=== PATIENT | male | born 1980 | race Caucasian/White ===

== ENCOUNTER 2016-11-27 02:38 | Emergency (ER) | payer MEDICAID ==
[~2016-11-27] VITALS: Ht 172.7 cm; Wt 65.9 kg
[2016-11-27 02:40] VITALS: BP 146/86
== END 2016-11-27 04:23 | disposition home or self-care (01) ==
LOC: ED 04:03
DX: K08.89 Other specified disorders of teeth and supporting structures (principal)
CPT/HCPCS: 99283

== ENCOUNTER 2018-03-19 23:21 | Emergency (ER) | payer MEDICAID ==
[~2018-03-19] VITALS: Ht 172.7 cm; Wt 72.0 kg
--- NOTE | 2018-03-19 23:52 | NUR ---
Dwight ko in ED - 03/19/18 at 2353 by ROBE EKG BEING DONE. PT IN [place], AWAITING ERP EVAL
--- NOTE | 2018-03-19 23:53 | NUR ---
EKG BEING DONE. PT IN GOWN, AWAITING ERP EVAL
[2018-03-20] MEDS ORDERED: NALOXONE 0.4 MG/ML, 1ML ONE (00:43)
--- NOTE | 2018-03-20 00:48 | NUR ---
TASK RN: PT LAYING IN GURNEY, MOSTLY SLEEPY. ARROUSABLE TO PAINFUL STIMULI ONLY THEN RETURNS QUICKLY TO SLEEP. RR 13. SPO2 >90% ON RA. PT MEDICATED PER EMAR W/ NARCAN. NO CHANGE IN MENTATION WITH MOTOR VEHICLE SALESPERSON. XRAY COMPLETE. BP/SPO2/ECG MONTIORING IN PLACE. NSR ON MONITOR.
[2018-03-20] MEDS ORDERED: NALOXONE 0.4 MG/ML, 1ML IVPush ONE (01:00)
--- NOTE | 2018-03-20 01:37 | NUR ---
PT AROUSABLE TO VOICE AT THIS TIME, IS A&OX4. PT VSS. PT AWARE CXR IS STILL PENDING. CALL LIGHT WITHIN REACH. BILAT BEDRAILS UP.
--- NOTE | 2018-03-20 01:50 | NUR ---
CXR RESULTED. PT UP FOR RECHECK
--- NOTE | 2018-03-20 02:07 | NUR ---
RECEIVED REPORT FROM HEIDY SANCHEZ TO ASSUME PT. CARE AT THIS TIME.
--- NOTE | 2018-03-20 02:43 | NUR ---
PT. RESTING ON GURNEY WITH EYES CLOSED. NADN. ALL MONITORS IN PLACE. VS UPDATED. ALL SAFETY MEASURES OBSERVED.
[2018-03-20 04:25] VITALS: BP 107/67
== END 2018-03-20 04:25 | disposition home or self-care (01) ==
LOC: ED 03-20 04:00
DX: M54.2 Cervicalgia (principal); M54.5 Low back pain; F15.10 Other stimulant abuse, uncomplicated; R05 Cough; Z72.9 Problem related to lifestyle, unspecified
CPT/HCPCS: 71045; 93005; 96374; 99283; J2310